=== PATIENT | female | born 1995 | race Two or more races ===

== ENCOUNTER 2024-01-13 09:45 | Emergency (ER) | payer OTHER ==
[~2024-01-13] VITALS: Ht 167.6 cm; Wt 77.1 kg
== END 2024-01-13 14:43 | disposition home or self-care (01) ==
LOC: ER 09:46
DX: S90.221A Contusion of right lesser toe(s) with damage to nail, initial encounter (principal); X58.XXXA Exposure to other specified factors, initial encounter; Y93.89 Activity, other specified; Y92.89 Other specified places as the place of occurrence of the external cause; Y99.9 Unspecified external cause status